=== PATIENT | female | born 1980 | race American Indian/Alaskan Native ===

== ENCOUNTER 2019-07-22 00:52 | Emergency (ER) | payer OTHER ==
--- NOTE | 2019-07-22 01:19 | Emergency Department Report ---
ED Syncope HPI - General Chief Complaint: Syncope Stated Complaint: SYNCOPE Time Seen by Provider: 07/22/19 01:08 Source: patient, EMS Exam Limitations: no limitations - History of Present Illness Initial Comments: CC: "I cut off by circulation." HPI: Jackie is a very pleasant 37-year-old female with past medical history of hypertension who presents from her job after syncopal episode. EMS was called. She had preceding shortness of breath and chest heaviness. She felt faint. She felt nauseous. Brief loss of consciousness. No previous history of syncope. She had on very tight arm compression sleeves. The sleeves made her hot. She does not have any chest pain at this time. No use of oral contraceptives. 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 She started this new job within the last month. This job requires her to be on her feet quite a bit. She is currently symptom-free. PCP Kyra Enciso GA Timing/Prior Episodes: no prior history, multiple episodes today (2) Precipitating Factors: Positive: lightheadedness, nausea, other (chest heaviness) Loss of Consciousness: brief (seconds) Current Symptoms: back to normal - Related Data Allergies/Adverse Reactions: Allergies No Known Allergies Allergy (Verified 07/22/19 02:26) ED Review of Systems ROS: Stated complaint: SYNCOPE Other details as noted in HPI ED Past Medical Hx - Past Medical History Previous Medical History?: Yes Hx Hypertension: Yes - Surgical History Past Surgical History?: No - Social History Smoking Status: Current Every Day Smoker Substance Use Type: None ED Physical Exam - General Limitations: No Limitations General appearance: alert, in no apparent distress - Head Head exam: Present: atraumatic, normocephalic - Eye Eye exam: Present: normal appearance - ENT ENT exam: Present: mucous membranes moist - Neck Neck exam: Present: normal inspection, full ROM - Respiratory Respiratory exam: Present: normal lung sounds bilaterally. Absent: respiratory distress, wheezes, rales, rhonchi - Cardiovascular Cardiovascular Exam: Present: regular rate, normal rhythm, normal heart sounds. Absent: systolic murmur, diastolic murmur, rubs, gallop - GI/Abdominal GI/Abdominal exam: Present: soft, normal bowel sounds. Absent: distended, tenderness, guarding - Extremities Exam Extremities exam: Present: normal inspection - Back Exam Back exam: Present: normal inspection - Neurological Exam Neurological exam: Present: alert, oriented X3 - Psychiatric Psychiatric exam: Present: normal affect, normal mood - Skin Skin exam: Present: warm, dry, intact, normal color. Absent: rash ED Course Vital Signs 07/22/19 07/22/19 07/22/19 01:07 01:08 01:09 Temperature 98.1 F Pulse Rate 77 75 72 Respiratory 15 17 14 Rate Blood Pressure 141/67 146/93 O2 Sat by Pulse 98 100 100 Oximetry 07/22/19 07/22/19 01:11 02:18 Temperature Pulse Rate 72 Respiratory 12 16 Rate Blood Pressure 146/93 O2 Sat by Pulse 100 100 Oximetry ED Medical Decision Making - Lab Data Result diagrams: 07/22/19 01:31 07/22/19 01:31 Laboratory Results - last 24 hr 07/22/19 07/22/19 07/22/19 01:11 01:31 01:31 WBC 6.8 RBC 4.03 Hgb 11.9 Hct 36.7 MCV 91 MCH 30 MCHC 33 RDW 15.0 Plt Count 253 Lymph % (Auto) 23.1 [place] % (Auto) 5.7 Eos % (Auto) 1.4 Baso % (Auto) 0.4 Lymph # 1.6 [place] # 0.4 Eos # 0.1 Baso # 0.0 Seg Neutrophils % 69.4 Seg Neutrophils # 4.7 Sodium 139 Potassium 4.0 Chloride 101.9 Carbon Dioxide 24 Anion Gap 17 BUN 13 Creatinine 0.7 Estimated GFR > 60 BUN/Creatinine Ratio 19 Glucose 86 POC Glucose 81 Calcium 8.8 HCG, Qual 07/22/19 01:31 WBC RBC Hgb Hct MCV MCH MCHC RDW Plt Count Lymph % (Auto) [place] % (Auto) Eos % (Auto) Baso % (Auto) Lymph # [place] # Eos # Baso # Seg Neutrophils % Seg Neutrophils # Sodium Potassium Chloride Carbon Dioxide Anion Gap BUN Creatinine Estimated GFR BUN/Creatinine Ratio Glucose POC Glucose Calcium HCG, Qual Negative - EKG Data -: EKG Interpreted by Me EKG shows normal: sinus rhythm, axis, intervals, QRS complexes, ST-T waves Rate: normal - EKG Data Interpretation: normal EKG - Medical Decision Making Mrs. Bran presents with syncopal episode at work. Suspect vasovagal episode Do not suspect arrhythmia or pulmonary embolism. I do not suspect acute coronary syndrome. CBC chemistry all within normal limits. EKG normal. Discharged home with reassurance. PERC negative for PE Critical care attestation.: If time is entered above; I have spent that time in minutes in the direct care of this critically ill patient, excluding procedure time. ED Disposition Clinical Impression: Syncope Disposition: DC-01 TO HOME OR SELFCARE Is pt being admited?: No Does the pt Need Aspirin: No Condition: Stable Instructions: Syncope (ED) Referrals: PRIMARY CARE, [Referring] - 3-5 Days Forms: Work/School Release Form(ED)
[2019-07-22 01:51] LABS: Basophils % (Auto) 0.4 % (0.0-1.8); Eosinophils # (Auto) 0.1 K/mm3 (0.0-0.4); Eosinophils % (Auto) 1.4 % (0.0-4.3); Hematocrit 36.7 % (30.3-42.9); Hemoglobin 11.9 gm/dl (10.1-14.3); Lymphocytes # (Auto) 1.6 K/mm3 (1.2-5.4); Lymphocytes % (Auto) 23.1 % (13.4-35.0); Mean Corpuscular HGB Conc 33 % (30-34); Mean Corpuscular Volume 91 fl (79-97); Monocytes # (Auto) 0.4 K/mm3 (0.0-0.8); Monocytes % (Auto) 5.7 % (0.0-7.3); Platelet Count 253 K/mm3 (140-440); Red Blood Count 4.03 M/mm3 (3.65-5.03)
[2019-07-22 02:01] LABS: BUN/Creatinine Ratio 19; Blood Urea Nitrogen 13 mg/dL (7-17); Calcium 8.8 mg/dL (8.4-10.2); Hemolysis Index 1
[2019-07-22 04:16] VITALS: BP 151/95
== END 2019-07-22 03:30 | disposition home or self-care (01) ==
LOC: EDBD → ED 00:52
DX: R55 Syncope and collapse (principal); I10 Essential (primary) hypertension; F17.200 Nicotine dependence, unspecified, uncomplicated
CPT/HCPCS: 36415; 80048; 82962; 84703; 85025; 93005; 93010; 99284

== ENCOUNTER 2021-05-10 21:27 | Emergency (ER) | payer OTHER ==
[2021-05-10] MEDS ORDERED: ALBUTEROL 2.5 MG/3 ML NEBU IH ONE (23:05)
[2021-05-10] MEDS ORDERED: dexAMETHasone 4 MG/ML VIAL IV ONE (23:05)
[2021-05-10] MEDS ORDERED: EPINEPHrine/PF 1 MG/1 ML INJ SUB-Q ONE (23:05)
[2021-05-10] MEDS ORDERED: FAMOTIDINE 20 MG/2 ML INJ IV ONE (23:05)
--- NOTE | 2021-05-10 23:05 | Emergency Department Report ---
HPI - General Chief Complaint: Allergic Reaction Time Seen by Provider: 05/10/21 23:02 - HPI HPI: Patient is a 40-year-old F [place] female who has a cellulitis on her posterior calf on the right who was prescribed Bactrim who after her second pills started having hives all over. She took first pill yesterday and started having some itching she drank Benadryl throughout the day yesterday and actually drank another full bottle today. Patient has hives all over with shortness of breath. Patient here for evaluation. No syncopal episodes no nausea or vomiting. ED Past Medical Hx - Past Medical History Previous Medical History?: Yes Hx Hypertension: Yes Additional medical history: Obesity - Surgical History Past Surgical History?: No - Social History Smoking Status: Never Smoker Substance Use Type: None - Medications Home Medications: Home Medications Medication Instructions Recorded Confirmed Last Taken Type Amoxicillin/Potassium Clav 1 each PO BID #10 tablet 05/11/21 Unknown Rx [Augmentin 875-125 Tablet] Famotidine [Pepcid] 40 mg PO QHS #7 tablet 05/11/21 Unknown Rx diphenhydrAMINE [Benadryl CAP] 50 mg PO Q8HR PRN #10 capsule 05/11/21 Unknown Rx predniSONE [Deltasone] 50 mg PO QDAY #5 tab 05/11/21 Unknown Rx ED Review of Systems ROS: Stated complaint: ALLERGIC REACTION TO MEDS Other details as noted in HPI Comment: All other systems reviewed and negative Physical Exam - Physical Exam Vital Signs: Vital Signs 05/10/21 22:48 Temperature 98.5 F Pulse Rate 123 H Respiratory 16 Rate Blood Pressure 108/73 O2 Sat by Pulse 97 Oximetry General: Patient alert and oriented x3. Skin exam shows diffuse hives throughout the entire body. Lungs are clear to auscultation heart tones normal. Does not appear to be in any distress. Abdomen soft nontender. ED Course Vital Signs 05/10/21 22:48 Temperature 98.5 F Pulse Rate 123 H Respiratory 16 Rate Blood Pressure 108/73 O2 Sat by Pulse 97 Oximetry - Reevaluation(s) Reevaluation #1: 05/11/21 00:05 Because of the amount of Benadryl the patient drank we did call poison control to ensure that she was in a safe range and this was nontoxic dose taken over 2 days. Patient given additional dose of IV Benadryl Decadron epinephrine and Pepcid. Patient states itching has started to improve at this time. Reevaluation #2: 05/11/21 01:06 Patient's hives are subsiding. States she is no longer feeling itchy. Reevaluated the area of cellulitis on the posterior calf. Patient states that he she got it caught on fence several days ago and she definitely has a great deal of bruising. 1 area of questionable cellulitis associated with some small abrasion. Switch the patient to Augmentin as the patient states she is taken penicillin penicillin type drugs in the past with no issues. Start the patient on steroids at home and the patient appears stable for discharge. Critical care attestation.: If time is entered above; I have spent that time in minutes in the direct care of this critically ill patient, excluding procedure time. ED Disposition Clinical Impression: Drug allergy, Allergic urticaria Disposition: DC-01 TO HOME OR SELFCARE Is pt being admited?: No Does the pt Need Aspirin: No Condition: Stable Instructions: Hives, [id number], Drug Allergy Referrals: PRIMARY CARE [Primary Care Provider] - 3-5 Days Time of Disposition: 01:08
[2021-05-10] MEDS ORDERED: SODIUM CHLORIDE 0.9% 1000 ML 1,000 ML IV ONE (23:52)
[2021-05-10] MEDS ORDERED: diphenhydrAMINE 50 MG/ML VIAL IV ONE (23:52)
[2021-05-11 01:22] VITALS: BP 109/65
--- NOTE | 2021-05-15 12:54 | Electrocardiograph Report ---
[facility] Test Date: 2021-05-10 Test Time: 23:33:44 Pat Name: LALITA OTT Department: Room: Gender: F Elementary Science Teacher: MARY : 1980 Requested By: ARACELI GIRALDO Order Number: [id number] Reading MD: Jes Blake Measurements Intervals [place] Rate: 97 P: 32 [place]: 136 QRS: -2 QRSD: 73 T: 23 QT: 322 QTc: 409 Interpretive Statements Sinus rhythm No previous ECG available for comparison Electronically Signed On 05-15-2021 12:53:51 EDT by Jes Blake
== END 2021-05-11 01:30 | disposition home or self-care (01) ==
LOC: ED 21:27
DX: L50.0 Allergic urticaria (principal); T45.0X5A Adverse effect of antiallergic and antiemetic drugs, initial encounter; I10 Essential (primary) hypertension; Z79.2 Long term (current) use of antibiotics; Z79.899 Other long term (current) drug therapy; Z88.2 Allergy status to sulfonamides; Z88.8 Allergy status to other drugs, medicaments and biological substances; Y92.89 Other specified places as the place of occurrence of the external cause
CPT/HCPCS: 93005; 94640; 96361; 96372; 96374; 96375; 99283; J0171; J1100; J1200; J7030

== ENCOUNTER 2021-05-16 17:37 | Emergency (ER) | payer OTHER ==
[2021-05-16] MEDS ORDERED: FAMOTIDINE 20 MG/2 ML INJ IV ONE (17:44)
[2021-05-16] MEDS ORDERED: methylPREDNISolone Sod Succinate 125 MG/2 ML INJ IV ONE (17:44)
--- NOTE | 2021-05-16 17:46 | Emergency Department Report ---
ED Allergic Reaction HPI - General Chief complaint: Allergic Reaction Stated complaint: ALLERGIC REACTION Time Seen by Provider: 05/16/21 17:41 Source: patient, EMS Mode of arrival: Stretcher Limitations: No Limitations - History of Present Illness Initial Comments: Patient is a 40-year-old female that presents emergency room with complaints of allergic reaction. Patient complains of facial swelling swelling and lip swelling and tongue swelling. Patient states that her symptoms started at 4 PM just prior to going to work. Patient states that her symptoms are improving. Patient states she had some difficulty breathing but that has a resolved. Patient brought in by EMS. Report received from EMS. Patient was given epi and Benadryl by EMS. Patient states she feels little better after the medication from EMS. Patient denies chest pain. Patient denies any shortness of breath at this time. Patient denies headache. Patient denies abdominal pain. Patient denies nausea vomiting. Patient denies recent travel. Patient denies recent international travel. Patient denies exposure to the novel coronavirus. Patient denies sick contacts. Patient denies fever and chills. Patient denies cough. Patient denies diarrhea. Patient denies coming in contact with anybody with symptoms of the novel coronavirus. Patient states she was seen here approximately 2 to 3 days ago for an allergic reaction to sulfa. Patient states she was treated and given a prednisone course. Patient states that the physician changed her antibiotic from sulfur to amoxicillin. Patient states she was doing fine and her symptoms were improving until 4 PM today. MD Complaint: allergic reaction, facial swelling -: Sudden Exposure: unknown Symptoms: facial swelling, lip swelling, difficulty swallowing Severity: severe Treatment Prior to Arrival: benadryl, epinephrine Previous Allergy History: prior ED visit(s) - Related Data Previous Rx's Medication Instructions Recorded Last Taken Type Amoxicillin/Potassium Clav 1 each PO BID #10 tablet 05/11/21 05/16/21 Rx [Augmentin 875-125 Tablet] Famotidine [Pepcid] 40 mg PO QHS #7 tablet 05/11/21 05/14/21 Rx diphenhydrAMINE [Benadryl CAP] 50 mg PO Q8HR PRN #10 capsule 05/11/21 05/15/21 Rx predniSONE [Deltasone] 50 mg PO QDAY #5 tab 05/11/21 05/16/21 Rx EPINEPHrine [Epipen 2-Andrew] 0.3 mg IJ DAILY PRN #1 auto.injct 05/16/21 Unknown Rx methylPREDNISolone [Medrol 4MG 4 mg PO DAILY 6 Days #1 tab.ds.pk 05/16/21 Unknown Rx DOSEPAK (21 tabs)] Allergies Allergy/AdvReac Type Severity Reaction Status Date / Time bee venom protein (honey bee) Allergy Anaphylaxis Verified 05/16/21 17:47 Sulfa (Sulfonamide Allergy Hives Verified 05/16/21 17:47 Antibiotics) ED Review of Systems ROS: Stated complaint: ALLERGIC REACTION Other details as noted in HPI Constitutional: denies: chills, fever Eyes: as per HPI. denies: eye pain, eye discharge, vision change ENT: as per HPI. denies: ear pain, throat pain Respiratory: see HPI, shortness of breath. denies: cough, wheezing Cardiovascular: denies: chest pain, palpitations Endocrine: no symptoms reported Gastrointestinal: denies: abdominal pain, nausea, diarrhea Genitourinary: denies: urgency, dysuria, discharge Musculoskeletal: denies: back pain, joint swelling, arthralgia Skin: as per HPI. denies: rash, lesions Neurological: denies: headache, weakness, paresthesias Psychiatric: denies: anxiety, depression Hematological/Lymphatic: denies: easy bleeding, easy bruising ED Past Medical Hx - Past Medical History Previous Medical History?: Yes Hx Hypertension: Yes Additional medical history: Obesity - Surgical History Past Surgical History?: No - Family History Family history: no significant - Social History Smoking Status: Never Smoker Substance Use Type: None - Medications Home Medications: Home Medications Medication Instructions Recorded Confirmed Last Taken Type Amoxicillin/Potassium Clav 1 each PO BID #10 tablet 05/11/21 05/16/21 05/16/21 Rx [Augmentin 875-125 Tablet] Famotidine [Pepcid] 40 mg PO QHS #7 tablet 05/11/21 05/16/21 05/14/21 Rx diphenhydrAMINE [Benadryl CAP] 50 mg PO Q8HR PRN #10 capsule 05/11/21 05/16/21 05/15/21 Rx predniSONE [Deltasone] 50 mg PO QDAY #5 tab 05/11/21 05/16/21 05/16/21 Rx EPINEPHrine [Epipen 2-Andrew] 0.3 mg IJ DAILY PRN #1 auto.injct 05/16/21 Unknown Rx methylPREDNISolone [Medrol 4MG 4 mg PO DAILY 6 Days #1 tab.ds.pk 05/16/21 Un known Rx DOSEPAK (21 tabs)] ED Physical Exam - General Limitations: No Limitations General appearance: alert, in no apparent distress - Head Head exam: Present: atraumatic, normocephalic - Eye Eye exam: Present: normal appearance, PERRL Pupils: Present: normal accommodation - ENT ENT exam: Present: mucous membranes moist, other (Tongue and lip swelling noted. Facial swelling noted.) - Neck Neck exam: Present: normal inspection - Respiratory Respiratory exam: Present: normal lung sounds bilaterally. Absent: respiratory distress, wheezes, rales, rhonchi, stridor - Cardiovascular Cardiovascular Exam: Present: regular rate, normal rhythm, normal heart sounds. Absent: systolic murmur, diastolic murmur, rubs, gallop - GI/Abdominal GI/Abdominal exam: Present: soft, normal bowel sounds. Absent: distended, tenderness, guarding - Rectal Rectal exam: Present: deferred - Extremities Exam Extremities exam: Present: normal inspection - Back Exam Back exam: Present: normal inspection - Neurological Exam Neurological exam: Present: alert, oriented X3 - Psychiatric Psychiatric exam: Present: normal affect, normal mood - Skin Skin exam: Present: warm, dry, intact, normal color. Absent: rash ED Course Vital Signs 05/16/21 05/16/21 17:38 18:41 Temperature 98.2 F Pulse Rate 91 H 99 H Respiratory 18 19 Rate Blood Pressure 121/75 Blood Pressure 132/87 [Left] O2 Sat by Pulse 98 98 Oximetry - Reevaluation(s) Reevaluation #1: Patient states she is feeling better. The swelling has improved in her face. Patient has been given Solu-Medrol and Pepcid. Patient refuses blood work. Blood work canceled 05/16/21 18:12 Reevaluation #2: Patient's swelling is slightly better. Patient still has significant facial and lip swelling and tongue swelling noted. I recommended the patient be admitted to the hospital for observation the patient refused. I discussed the risk with patient. Patient voiced understanding of the risk of leaving the hospital AGAINST MEDICAL ADVICE. Even though the patient is leaving the hospital otherwise, a formal discharge will be given along with prescriptions and instructions. I discussed all results and clinical findings with patient. I discussed plan of care with patient. Patient refused admission.. Patient given discharge instructions. Patient voiced understanding of discharge instructions. 05/16/21 19:00 ED Medical Decision Making - Medical Decision Making Patient is a 31 male who presents emergency room with complaints of allergic reaction, facial edema, lip swelling, tongue swelling and difficulty breathing. Patient brought in by EMS. EMS gave the patient epi and Benadryl and the patient's symptoms improved. Patient states short of breath resolved prior to arrival. Patient was then given Solu-Medrol and Pepcid and the patient's swelling slightly improved. Due to the patient's clinical situation and the amount of oropharynx swelling and lip swelling, I recommended admission to the hospital for observation the patient refused. I discussed the risk with the patient. Patient voiced understanding of the risk. Patient is leaving the hospital AGAINST MEDICAL ADVICE and refusing admission. Even though the patient is leaving the hospital this would arise, a discharge will be rendered to the patient to include prescriptions and discharge instructions. Critical care time documented due to the multiple reassessments, prolonged time at the bedside, interpretation of diagnostics and labs. - Differential Diagnosis Angioedema, allergic reaction, lip swelling, shortness of breath, facial sw Critical Care Time: Yes Critical care time in (mins) excluding proc time.: 35 Critical care attestation.: If time is entered above; I have spent that time in minutes in the direct care of this critically ill patient, excluding procedure time. Critical Care Time: 35 minutes ED Disposition Clinical Impression: Drug allergy, Facial swelling, Lip swelling, Tongue swelling Angioedema Qualifiers: Encounter type: initial encounter Qualified Code(s): T78.3XXA - Angioneurotic edema, initial encounter Disposition: 07 LEFT AGAINST MED ADVICE Is pt being admited?: No Does the pt Need Aspirin: No Condition: Critical Instructions: Angioedema, [id number], How to Use an Auto-Injector Pen Additional Instructions: Patient to follow-up with primary care in 2 to 3 days. Patient to follow-up with insurance risk surveyor in 2 to 3 days. Patient to rest. Patient to increase water. Patient to avoid strenuous exercise or heavy lifting until cleared by primary care and insurance risk surveyor. Patient to take Tylenol as needed for pain. Patient to take meds as directed. Patient to return to the ER if condition worsens, changes or new symptoms arise. You are leaving the hospital AGAINST MEDICAL ADVICE but please return to the hospital if you are symptoms worsen or a new symptom arises. Prescriptions: EPINEPHrine [Epipen 2-Andrew] 0.3 mg IJ DAILY PRN #1 auto.injct PRN Reason: Anaphylaxis methylPREDNISolone [Medrol 4MG DOSEPAK (21 tabs)] 4 mg PO DAILY 6 Days #1 tab.ds.pk Referrals: PRIMARY MD CAROL [Primary Care Provider] - 2-3 Days LEO CISNEROS MD [Staff Physician] - 2-3 Days SNEHA CHOI MD [Referring] - 2-3 Days MIKEY CASILLAS MD [Referring] - 2-3 Days ALISTAIR GIBSON MD [Referring] - 2-3 Days Time of Disposition: 19:10
[2021-05-16 19:40] VITALS: BP 133/82
--- NOTE | 2021-05-22 09:38 | Electrocardiograph Report ---
[facility] Test Date: 2021-05-16 Test Time: 18:27:48 Pat Name: LALITA OTT Department: Room: Gender: F Clinical Lab Specialist: DEO : 1980 Requested By: BRENDAN JIMENES III Order Number: [id number] Reading MD: Zach Gil Measurements Intervals [place] Rate: 91 P: 26 [place]: 133 QRS: -5 QRSD: 83 T: 20 QT: 364 QTc: 447 Interpretive Statements Sinus rhythm Low voltage, precordial leads Consider anterior infarct Compared to ECG 05/10/2021 23:33:44 Low QRS voltage now present Myocardial infarct finding now present Electronically Signed On 05-22-2021 9:37:58 EDT by Zach Gil
== END 2021-05-16 19:39 | disposition left against medical advice (07) ==
LOC: ED 17:37
DX: T78.3XXA Angioneurotic edema, initial encounter (principal); R22.0 Localized swelling, mass and lump, head; T45.0X5A Adverse effect of antiallergic and antiemetic drugs, initial encounter; I10 Essential (primary) hypertension; Z79.2 Long term (current) use of antibiotics; Z79.899 Other long term (current) drug therapy; Z88.2 Allergy status to sulfonamides; Z88.8 Allergy status to other drugs, medicaments and biological substances; Y92.89 Other specified places as the place of occurrence of the external cause
CPT/HCPCS: 93005; 96374; 96375; 99283; J2930